=== PATIENT | female | born 1970 | race Caucasian/White ===

== ENCOUNTER → 2017-10-18 10:40 | Outpatient (CLI) | payer OTHER, SELFPAY ==
--- NOTE | 2017-10-18 10:50 | BI_ITS ---
MAMMOGRAPHY - BILATERAL SCREENING 3-D ELISABETH SYNTHESIS REASON FOR EXAM: Female, 47 years old. Bilateral Screening 3-D tomosynthesis PERTINENT HISTORY: Personal history of breast cancer with previous lumpectomy.. TECHNIQUE: 2-D mammograms and 3-D Elisabeth synthesis of the breast (s) were performed. CAD was performed. COMPARISON: 09/28/2016 FINDINGS: The breast composition is heterogeneously dense that can obscure small breast masses. Scattered benign calcifications are seen. No dense spiculated masses or suspicious microcalcifications are identified. Stable architectural distortion in the central right breast from previous surgery. There has been no significant change since the prior study. There has been no significant change since the prior study. BI/SCREENING MAMM (CAD), BILAT IMPRESSION: No mammographic signs of malignancy. Routine yearly mammograms recommended. ASSESSMENT CATEGORY: BIRADS Category 2: Benign. A letter regarding these results will be sent to the patient by the facility within 30 days. FOLLOW UP RECOMMENDATION: Yearly follow up mammogram recommended. (A) Approximately 10% of breast cancers are not detected by mammography. A normal mammogram should not delay biopsy of a clinically suspicious abnormality. Electronically Signed: Norberto Appiah MD at 14:13 EDT , Service support ,
== END ==
PROVIDERS: Family Provider Family Medicine; PCP Family Medicine; Visit Provider Obstetrics & Gynecology
DX: Z12.31 Encounter for screening mammogram for malignant neoplasm of breast (principal)
CPT/HCPCS: 77063; 77067

== ENCOUNTER → 2018-10-24 10:20 | Outpatient (CLI) | payer OTHER, SELFPAY ==
--- NOTE | 2018-10-24 10:23 | BI_ITS ---
MAMMOGRAPHY - BILATERAL SCREENING REASON FOR EXAM: Female, 48 years old. Routine annual screening examination. PERTINENT HISTORY: Personal history of breast cancer. Prior right lumpectomy with radiation and chemotherapy. TECHNIQUE: Digital bilateral breast elisabeth (3D mammographic acquisition) in the CC and MLO projections. 2-D mediolateral oblique (MLO) and craniocaudad (CC) views of both breasts were obtained. CAD: Full Field Digital Mammography with Computer Added Detection was performed. COMPARISON: Comparison is made with prior study dated October 18, 2017 and September 28, 2016. FINDINGS: Breast Composition: The breasts are heterogeneously dense, which may obscure small masses. There are no dominant masses or suspicious calcifications. Stable postoperative appearance in the upper deep slightly medial aspect of the right breast with a resultant postsurgical architectural distortion and focal calcification. Surgical clips are also seen in the right axillary region. No other significant abnormalities are identified. There has been no significant change since the prior study. BI/SCREEN MAMM (CAD) W/ELISABETH BILAT IMPRESSION: Stable bilateral screening mammogram. Yearly follow-up mammogram recommended. (A) ASSESSMENT CATEGORY: BIRADS Category 2: Benign. A letter regarding these results will be sent to the patient by the facility within 30 days. Approximately 10% of breast cancers are not detected by mammography. A normal mammogram should not delay biopsy of a clinically suspicious abnormality. [id number] Electronically Signed: Kenneth Kuo, at 11:28 EDT , Service support ,
== END ==
PROVIDERS: Family Provider Family Medicine; PCP Family Medicine; Referring Provider Obstetrics & Gynecology; Visit Provider Obstetrics & Gynecology
DX: Z12.31 Encounter for screening mammogram for malignant neoplasm of breast (principal)
CPT/HCPCS: 77063; 77067

== ENCOUNTER → 2018-11-06 09:53 | Outpatient (CLI) | payer OTHER, SELFPAY ==
[2018-11-06 10:48] LABS: BUN 23 mg/dL (7-18); Creatinine, Serum 1.03 mg/dL (0.55-1.02); Glucose 117 mg/dL (74-106)
[2018-11-06 10:49] LABS: ALB/GLOB Ratio 1.1 RATIO (0.9-2.4); AST(SGOT) 23 U/L (15-37); Alanine Aminotransfer ALT/SGPT 37 U/L (13-56); Albumin, Serum 3.8 g/dL (3.2-5.0); Alkaline Phosphatase 72 U/L (45-117); Anion Gap 7 (5-15); BUN/Creat Ratio 22.3 RATIO (10-20); Chloride 106 mmol/L (98-107); Cholesterol 206 mg/dL (200); EST Glomerular Filtration Rate 61 mL/min (>60); Est Glom Filt Rate - Afr Amer 74 mL/min (>60); Globulin 3.5 g/dL (2.2-4.2); High Density Lipoprotein 43 mg/dL; Potassium 3.6 mmol/L (3.5-5.1); Protein, Total 7.3 g/dL (6.4-8.2); Sodium Level 141 mmol/L (136-145); Triglycerides 129 mg/dL; Very Low Density Lipoprotein 26 mg/dL (5-40)
== END ==
PROVIDERS: Family Provider Family Medicine; PCP Family Medicine; Referring Provider Family Medicine; Visit Provider Family Medicine
DX: I10 Essential (primary) hypertension (principal)
CPT/HCPCS: 36415; 80053; 80061

== ENCOUNTER 2019-06-14 14:04 | Emergency (ER) | payer OTHER, SELFPAY ==
[2019-06-14 14:05] VITALS: BP 164/112; PULSE 83; RESP 16; TEMP 36.7; O2SAT 98; BMI 40.0
[2019-06-14 14:13] VITALS: BMI 37.5
--- NOTE | 2019-06-14 14:25 | EKG12_ITS ---
Test Reason : NEURO S/SX Blood Pressure : / mmHG Vent. Rate : 080 BPM Atrial Rate : 080 BPM P-R Int : 152 ms QRS Dur : 076 ms QT Int : 388 ms P-R-T Axes : 039 -08 015 degrees QTc Int : 447 ms Normal sinus rhythm Inferior infarct , age undetermined Abnormal ECG Confirmed by DONTRELL IYER, MELE ([id number]), index editor CLAUDIA MOJICA ([id number]) on 06/17/2019 8:35:54 AM Referred By: ANGELITA Confirmed By:MELE JON MD
--- NOTE | 2019-06-14 14:25 | CT_ITS ---
STUDY: CTA HEAD AND NECK WITH CONTRAST REASON FOR EXAM: Female, 48 years old. FACIAL [place], RT SIDE RADIATION DOSAGE (If Supplied By Facility): CTDIvol = ( 25.29 ) mGy, DLP = ( 1358.25 ) mGycm TECHNIQUE: CT angiography was performed with a multi-detector CT scanner. Data acquisition was obtained from the skull base through the vertex following intravenous administration of 100 CC ISOVUE 370. MIP images were reconstructed from the axial data set. Post-processing of the angiographic images was performed, with multiplanar reformation and 3D reconstruction. Individualized dose optimization techniques were used for this CT. COMPARISON: No relevant priors. FINDINGS: Normal bilateral petrous carotid arteries. Normal right cavernous carotid artery with a normal supraclinoid bifurcation. Normal left cavernous carotid artery with a normal supraclinoid bifurcation. Diffusely hypoplastic right A1 segment of the anterior cerebral artery. Normal left A1 segments of the anterior cerebral artery. Normal intact anterior communicating artery (ACOM). Normal bilateral A2 segments of the anterior cerebral arteries. Normal right M1 and M2 segments of the middle cerebral arteries, with a normal M1 bifurcation. Normal left M1 and M2 segments of the middle cerebral arteries, with a normal M1 bifurcation. Hypoplastic bilateral posterior communicating arteries (PCOM). Normal bilateral vertebral arteries. Normal basilar artery with a normal basilar bifurcation. The visualized bilateral superior cerebellar (SCA) arteries are normal. Normal bilateral P1, P2 and visualized P3 segments of the posterior cerebral arteries. There is no demonstrated aneurysm of the lower elwha of [place]. There is no demonstrated abnormality of the visualized brain. AORTIC ARCH: Normal visualized aortic arch. Normal origins of the brachiocephalic, left common carotid, and left subclavian arteries. RIGHT CAROTID ARTERIES: Normal right common carotid artery (CCA). Normal right common carotid bulb. Normal origin of the right internal carotid (ICA) artery without a hemodynamically significant stenosis. Normal visualized cervical portion of the right internal carotid artery. Normal origin of the right external carotid artery (ECA). LEFT CAROTID ARTERIES: Normal left common carotid artery (CCA). Normal left common carotid bulb. Normal origin of the left internal carotid (ICA) artery without a hemodynamically significant stenosis. Normal visualized cervical portion of the left internal carotid artery. Normal origin of the left external carotid artery (ECA). VERTEBRAL ARTERIES: Normal bilateral vertebral arteries. CT/CTA Head AND Neck W/ Contrast IMPRESSION: Hypoplastic right A1 segment and bilateral posterior communicating arteries likely a normal variation. Electronically Signed: Isiah Che DO at 16:06 EDT Tel [phone], Service support ,
--- NOTE | 2019-06-14 14:29 | NURSING ---
NO OLD EKGS
[2019-06-14 14:40] LABS: Absolute Lymphocyte Count 1.36 X10^3/uL (0.83-4.51); Absolute Neutrophil Count 5.2 X10^3/uL (2.0-7.7); Basophil# 0.05 X10^3/uL; Basophil% 0.7 % (0-1); Eosinophil# 0.13 X10^3/uL; Eosinophils% 1.8 % (0-5); Hematocrit 41.3 % (37-47); Hemoglobin 13.7 g/dL (12.0-15.0); Lymphocyte # 1.36 X10^3/ul (4.0); Lymphocyte % 18.4 % (19-41); Mean Corp Hgb Conc 33.2 g/dL (32-36); Mean Corpuscular Hgb 30.6 pg (27.0-32.0); Mean Corpuscular Volume 92.4 fL (81-99); Mean Platelet Vol. 9.4 fl (6.2-12.0); Monocyte# 0.63 X10^3/uL; Monocyte% 8.5 % (0-10); NRBC Flagged by Analyzer 0 % (0-5); Neutrophil # 5.22 X10^3/uL (2.7-7.7); Neutrophil % 70.3 % (47-70); Platelet Count 301 K/mm3 (150-450); RBC Distribution Width CV 13.5 % (11.6-14.6); RBC Distribution Width SD 46.4 fl (35.1-43.9); Red Blood Count 4.47 M/mm3 (4.2-5.4); White Blood Count 7.4 K/mm3 (4.4-11.0)
[2019-06-14 14:53] LABS: Anion Gap 8 (5-15); BUN 16 mg/dL (7-18); BUN/Creat Ratio 16.3 RATIO (10-20); Calcium,Total 8.9 mg/dL (8.5-10.1); Chloride 103 mmol/L (98-107); Creatinine, Serum 0.98 mg/dL (0.55-1.02); EST Glomerular Filtration Rate 64 mL/min (>60); Est Glom Filt Rate - Afr Amer 77 mL/min (>60); Estimated Creatinine Clearance 63.17 ml/min; Glucose 122 mg/dL (74-106); Potassium 3.5 mmol/L (3.5-5.1); Sodium Level 141 mmol/L (136-145)
[2019-06-14 15:08] VITALS: BP 127/92; PULSE 85; RESP 18; O2SAT 96
[2019-06-14 15:18] VITALS: BP 136/96; PULSE 90; RESP 16; O2SAT 98
--- NOTE | 2019-06-14 15:45 | ED.VISSUMM ---
- ER Visit Summary Date of Service: 06/14/19 Chief Complaint: Headache, facial tingling History of Present Illness: The patient is a 48 F presenting with facial tingling. Patient states she started having a gradual onset headache last night. She states at its worst it was 2 out of 10. This was not the worst headache of her life. The headache has currently resolved. She states at the time the headache started she started having tingling on the right side of her face. This started around 1:30 AM. She woke up around 5 AM and noted tingling in her right arm and leg. She was able to ambulate to the bathroom at that time and had no weakness. She denies any vertigo. Denies vision or speech changes. Denies confusion. She states she then went back to sleep. When she woke up at 9 AM the tingling in her right arm and leg had resolved but she continues to have tingling in her right side of her face. The headache is also resolved. She denies other complaints. Physical Examination: Vitals are stable. Patient is afebrile. Alert no acute distress. HEENT exam is unremarkable. Neck is supple. No meningismus Lungs are clear and equal bilaterally. Heart is regular rate and rhythm. Abdomen is soft nontender nondistended. Extremities are unremarkable. Skin is warm and dry. No focal neurologic deficit. NIH is 0 Remainder of exam is unremarkable. Emergency Department Course and Treatment: Initial blood pressure 164/112. Repeat blood pressure 127/92. EKG is sinus rhythm rate of 80 with no acute ischemic changes. CBC, chemistries unremarkable. CTA head and neck show hypoplastic right A1 segment and bilateral posterior communicating arteries likely a normal variation. Discussed with the patient that this may have been an atypical migraine versus TIA. Discussed with the hospitalist for evaluation. Patient was evaluated by the hospitalist in the ED. Patient will be discharged to follow-up with her primary care physician. She is agreeable with this plan. She is advised signs and symptoms for which to return to the ED. Disposition: Discharge home Impression: Headache, facial paresthesia This note was generated with [employer] software. It may contain incorrect words, spelling, and punctuation that were not noted in review of the chart prior to signing ED Disposition - Plan for ED Patient: Instructions: HEADACHE, Unspecified Prescriptions: Ipratropium [place] 0.06% [ATROVENT NASAL SPRAY (g)] 2 spray NASAL TID #1 nasal.sry Prescription Printed Referrals: Omar Muse [Primary Care Provider] -
[2019-06-14 16:08] VITALS: BP 131/94; PULSE 90; RESP 13; O2SAT 96
--- NOTE | 2019-06-14 16:45 | NURSING ---
DR ROSSI IN ER
--- NOTE | 2019-06-14 16:48 | ED.DEP ---
ED Disposition - Plan for ED Patient: Instructions: HEADACHE, Unspecified Referrals: Omar Muse [Primary Care Provider] -
[2019-06-14 16:59] VITALS: BP 141/97; PULSE 79; RESP 16; O2SAT 98
--- NOTE | 2019-06-14 17:12 | PCM.CONS.GEN ---
Problem List (1) Migraine Status: Acute Qualifiers: Migraine type: without aura Status migrainosus presence: without status migrainosus Intractability: not intractable Qualified Code(s): G43.009 - Migraine without aura, not intractable, without status migrainosus (2) HTN (hypertension) Status: Chronic (3) History of breast cancer Status: Chronic Comment: she had a right side lumpectomy in 2007....cancer free now (4) History of endometrial ablation Status: Chronic Comment: for DUB (5) Obesity Status: Chronic (6) Glucose intolerance Status: Chronic (7) Diabetes in Status: Inactive Qualifiers: Diabetes in type: gestational Reason for Consult Date of Consultation: 06/14/19 Reason for Consultation: R side paresthesias of face shoulder and leg History of Present Illness: The patient is a 48 year old F with a past medical history of hypertension, obesity, gestational diabetes, glucose intolerance and breast CA who presented to the ED at [facility] on 06/14/19 c/o numbness and tingling of the R face, R shoulder and the R leg that started the previous night. She also had a right side FULLER. She went to bed and today there is no longer any paresthesias of the RUE of R leg but she still has a funny sensation in the R face. She denied changes in vision, slurred speech, confusion, weakness of the arms or legs, difficulty swallowing and trouble getting her words out. she has had no vertigo and no difficulty ambulating. She also sometimes has this sensation when she has sinus problems. She has never been diagnosed with migraines by a physician however she gets headaches that are often associated with photophobia and sometimes with nausea. She denies any aura. She has never had neurologic complaints with these headaches. She states that Excedrin Migraine works better for these headaches than Motrin. She sometimes has to go to bed and sleep it off when they are severe. She also states that sometimes drinking coffee helps. To her knowledge there is no family history of migraines. The headaches are infrequent and frequently associated with changes in temperature outside. She denies fevers, cough, ear pain. Her only medications are Cozaar and a diuretic for HTN. She tells me that she usually takes over the counter sinus medications with a decongestant when she gets that sensation on the right side of the face. She has a RX for Zyrtec and this helps some. Nasal steroids have not worked for her in the past. Vital signs at presentation to the emergency room were temperature 98.1, pulse rate 83, blood pressure 164/112, respiratory rate 16 and she was 98% saturated on room air. The second blood pressure was 127/92 and she did not receive any medication. CBC showed a normal white blood cell count, normal hemoglobin and normal platelets. The BMP was unremarkable except a mildly increased random glucose at 122. A CTA of the head and neck were done in the emergency room and showed a hypoplastic right A1 segment and hypoplastic bilateral posterior communicating arteries. Past Medical History Past Medical History (Chronic Problems): Chronic Problems HTN (hypertension) (Chronic) History of breast cancer (Chronic) she had a right side lumpectomy in 2007....cancer free now History of endometrial ablation (Chronic) for DUB Obesity (Chronic) Glucose intolerance (Chronic) Allergies Sulfa (Sulfonamide Antibiotics) Allergy (Verified 06/14/19 14:08) Rash Home Medications: Ambulatory Orders Medication Instructions Recorded Hydrochlorothiazide [Hctz] 25 mg PO DAILY 06/14/19 Ipratropium [place] 0.06% 2 spray NASAL TID #1 nasal.sry 06/14/19 [ATROVENT NASAL SPRAY (g)] Surgical History: - - Endometrial ablation for dysfunctional uterine bleeding, right breast lumpectomy Psychiatric History: No pertinent psych hx [employer] History: dysfunctional uterine bld - Status post endometrial ablation Lives: With Family Smoking Status: Never smoker Tobacco Use: Non-smoker Alcohol: Rare Drugs: None - *Family History Maternal History Items: - - Her mother is alive and healthy. Patient denies any family history of breast cancer and she herself is BRCA negative. Paternal History Items: Cancer - Father of throat cancer in his 40s. He was a smoker. Review of Systems Constitutional: Denies: Anorexia, Chills, Fever, Malaise, Weakness, Weight Change Eyes: Denies: Blurred vision, Double vision, Vision Change HEENT: Reports: Head Aches - right side only....most of her FULLER's are on the right side, Nasal Congestion. Denies: Difficulty Swallowing, Dysphasia, Ear Pain, Sinus Congestion, Sinus Drainage, Sore Throat, Visual Changes Cardiovascular: Denies: Chest Pain, Edema, Light Headedness, Palpitations, Syncope Respiratory: Denies: Cough, Shortness of Breath, Shortness of breath at rest, Sputum production Gastrointestinal: Denies: Abdominal Pain, Diarrhea, Nausea, Vomiting Genitourinary: Denies: Dysuria Gynecological: Denies: Breast symptoms, Vaginal discharge Musculoskeletal: Denies: Arm Pain, Joint Pain, Joint Tenderness, Leg Pain, Shoulder Pain Skin: Denies: Jaundice, Rash, Wounds Neurological: Reports: Headaches. Denies: Balance problems, Blurred vision, Double vision, Change in Speech, Slurred speech, Confusion, Difficulty swallowing, Focal weakness, Incoordination, Numbness, Tingling, Tremor, Seizures Psychiatric: Reports: - - she tells me that when she gets anxious her BP increases. Denies: Anxiety, Depression, Homicidal Ideations, Suicidal Ideations Endocrine: Denies: Hx of Thyroiditis Hematologic/ Lymphatic: Denies: Easy Bruising, Easy Bleeding - Physical Exam Vitals/I&O's: Vital Signs Temp Pulse Resp BP Pulse Ox 98.1 F 79 16 141/97 H 98 06/14/19 14:05 06/14/19 16:59 06/14/19 16:59 06/14/19 16:59 06/14/19 16:59 Oxygen Delivery Method Room Air Weight: 225 lb 15.581 oz Body Mass Index (BMI) 37.5 General: Alert, Oriented x3, Cooperative, No apparent distress, Well developed, Well nourished HEENT: Atraumatic, PERRLA, EOMI, Normocephalic, TM's Clear, EAC Clear Oral: Moist Mucosa, No Gingival or Mucosal Lesions/ Ulcerations Neck: Supple, No JVD, Negative Carotid Bruits, No Nodes, No Nuchal Rigidity, Trachea Midline Lungs: Clear to auscultation, Normal air movement Cardiovascular: Regular rate, Regular Rhythm, Normal S1, Normal S2, No murmurs, No Ectopic Activity, No rub noted, No Gallop Abdomen: Bowel Sounds Present, Soft, Non Tender, Non-Distended, Obese Extremities: No clubbing, No cyanosis, No edema, Capillary Refill Less than 3 Seconds, No Calf Tenderness Skin: No rashes, No breakdown Musculoskeletal: No Tenderness to Palpation of Joints or Extremities, No Muscle Wasting Neurological: Cranial nerves II-XII grossly intact, Neuro grossly intact, Motor Exam 5/5 strength throughout, Muscle tone normal, Coordination normal, - - NIH is 0. She has intact sensation to all branches of the facial nerve. There is no facial asymmetry. there is no side neglect and no visual field cuts. Psych/Mental Status: Normal Affect, Appropriate Laboratory Results 06/14/19 14:30: WBC 7.4, RBC 4.47, Hgb 13.7, Hct 41.3, MCV 92.4, MCH 30.6, MCHC 33.2, RDW Std Deviation 46.4 H, RDW Coeff of [place]ath 13.5, Plt Count 301, MPV 9.4, Immature Gran % (Auto) 0.300, Neut % (Auto) 70.3 H, Lymph % (Auto) 18.4 L, [place] % (Auto) 8.5, Eos % (Auto) 1.8, Baso % (Auto) 0.7, Absolute Neuts (auto) 5.2, Absolute Lymphs (auto) 1.36, Nucleated RBC % 0 06/14/19 14:30: Sodium 141, Potassium 3.5, Chloride 103, Carbon Dioxide 30.0, Anion Gap 8, BUN 16, Creatinine 0.98, Estim Creat Clear Calc 63.17, Est GFR (MDRD) Af Amer 77, Est GFR (MDRD) Non-Af 64, BUN/Creatinine Ratio 16.3, Glucose 122 H, Calcium 8.9 Assessment/Plan All Active Problems Migraine (Acute) Impressions 1. Transient dysesthesias of the R face, Arm and leg. The arm and leg have completely resolved but she still has a funny feeling in the R cheek....she has had this in the past when she has sinus congestion and she usually takes a decongestant. the sensation and the FULLER are more often than not associated with sudden changes in the weather/temperature. This is associated with R side cephalgia. If she was having a stroke as the etiology of the right side FULLER and dysesthesias I would expect the numbness and tingling to be on the left side of the body. Her neuro exam is normal and the NIH is 0. I suspect the residual funny sensation in the R cheek is due to sinus/nasal congestion. She was given a RX for Atrovent nasal spray to try for non-allergic rhinitis. I told her she can take Zyrtec but avoid OTC decongestants because they increase BP. She was offered admission for observation but, she decided to go home. I explained if she changes her mind or she develops any additional neurologic sx she can come back to the ED and be admitted. Inpatient E&M: [id number] Subs Hosp L2
== END 2019-06-14 17:00 | disposition home or self-care (01) ==
LOC: ED 14:28
PROVIDERS: Emergency Provider Emergency Medicine; PCP Family Medicine
DX: G43.909 Migraine, unspecified, not intractable, without status migrainosus (principal); R09.81 Nasal congestion; E66.9 Obesity, unspecified; I10 Essential (primary) hypertension; Z85.3 Personal history of malignant neoplasm of breast; Z79.899 Other long term (current) drug therapy
CPT/HCPCS: 70496; 70498; 80048; 85025; 93005; 99284; Q9967; A4216

== ENCOUNTER → 2019-11-12 10:40 | Outpatient (CLI) | payer OTHER, SELFPAY ==
--- NOTE | 2019-11-12 10:43 | BI_ITS ---
MAMMOGRAPHY - BILATERAL SCREENING 3-D TOMOSYNTHESIS REASON FOR EXAM: Female, 49 years old. Annual screening mammogram. PERTINENT HISTORY: Personal history of breast cancer at age 35 status post lumpectomy, chemotherapy and radiation.. TECHNIQUE: 2-D mammograms and 3-D Tomosynthesis of the breast (s) were performed. CAD was performed. COMPARISON: 10/24/2018, 10/18/2017 FINDINGS: The breast composition is heterogeneously dense that can obscure small breast masses. Stable postlumpectomy and radiation therapy changes in the right breast with dystrophic calcification. Stable left breast. There has been no significant change since the prior study. BI/SCREEN MAMM (CAD) W/ELISABETH BILAT IMPRESSION: Stable bilateral screening mammogram. Routine yearly mammograms recommended. ASSESSMENT CATEGORY: BIRADS Category 2: Benign. A letter regarding these results will be sent to the patient by the facility within 30 days. FOLLOW UP RECOMMENDATION: Yearly follow up mammogram recommended. (A) Approximately 10% of breast cancers are not detected by mammography. A normal mammogram should not delay biopsy of a clinically suspicious abnormality. Electronically Signed: Saulo Xie MD at 17:29 EDT , Service support ,
== END ==
PROVIDERS: PCP Family Medicine; Referring Provider Obstetrics & Gynecology; Visit Provider Obstetrics & Gynecology
DX: Z12.31 Encounter for screening mammogram for malignant neoplasm of breast (principal); Z85.3 Personal history of malignant neoplasm of breast
CPT/HCPCS: 77063; 77067

== ENCOUNTER → 2020-11-19 10:37 | Outpatient (CLI) | payer OTHER, SELFPAY ==
--- NOTE | 2020-11-19 10:41 | BI_ITS ---
MAMMOGRAPHY - BILATERAL SCREENING REASON FOR EXAM: Female, 50 years old. Routine annual screening examination. PERTINENT HISTORY: Personal history of breast cancer. Prior right lumpectomy with radiation and chemotherapy. TECHNIQUE: Digital bilateral breast elisabeth (3D mammographic acquisition) in the CC and MLO projections. 2-D mediolateral oblique (MLO) and craniocaudad (CC) views of both breasts were obtained. CAD: Full Field Digital Mammography with Computer Added Detection was performed. COMPARISON: Comparison is made with prior examination dated 11/12/2019 and 10/24/2018. FINDINGS: Breast Composition: The breasts are heterogeneously dense, which may obscure small masses. There are no dominant masses or suspicious calcifications. The patient is status post lumpectomy in the deep upper medial portion of the right breast with resultant postoperative scarring and dystrophic calcification. This is unchanged. The left breast is unremarkable. No other significant abnormalities are identified. There has been no significant change since the prior study. BI/SCRN MAMM (CAD)W/ELISABETH BILAT IMPRESSION: Stable bilateral screening mammogram. Yearly follow-up mammogram recommended. (A) ASSESSMENT CATEGORY: BIRADS Category 2: Benign. A letter regarding these results will be sent to the patient by the facility within 30 days. Approximately 10% of breast cancers are not detected by mammography. A normal mammogram should not delay biopsy of a clinically suspicious abnormality. [id number] Electronically Signed: Kenneth Kuo MD at 12:57 EDT , Service support ,
== END ==
PROVIDERS: PCP Family Medicine; Referring Provider Obstetrics & Gynecology; Visit Provider Obstetrics & Gynecology
DX: Z12.31 Encounter for screening mammogram for malignant neoplasm of breast (principal); Z85.3 Personal history of malignant neoplasm of breast
CPT/HCPCS: 77063; 77067

== ENCOUNTER → 2021-11-25 | Outpatient (CLI) | payer OTHER, SELFPAY ==
--- NOTE | 2021-11-25 10:17 | BI_ITS ---
MAMMOGRAPHY - BILATERAL SCREENING REASON FOR EXAM: Female, 51 years old. Routine annual screening examination. PERTINENT HISTORY: Personal history of breast cancer. Prior right lumpectomy with chemotherapy and radiation treatment. TECHNIQUE: Digital bilateral breast elisabeth (3D mammographic acquisition) in the CC and MLO projections. 2-D mediolateral oblique (MLO) and craniocaudad (CC) views of both breasts were obtained. CAD: Full Field Digital Mammography with Computer Added Detection was performed. COMPARISON: Comparison is made with prior examination dated 11/12/2019 and 10/24/2018. FINDINGS: Breast Composition: The breasts are heterogeneously dense, which may obscure small masses. There are no dominant masses or suspicious calcifications. The patient is status post lumpectomy in the upper medial aspect of the right breast with resultant postoperative scarring and dystrophic calcification. There has been no change. Surgical clips are also seen in the right axillary region. No other significant abnormalities are identified. There has been no significant change since the prior study. BI/SCRN MAMM (CAD)W/ELISABETH BILAT IMPRESSION: Stable bilateral screening mammogram. Yearly follow-up mammogram recommended. (A) ASSESSMENT CATEGORY: BIRADS Category 2: Benign. A letter regarding these results will be sent to the patient by the facility within 30 days. Approximately 10% of breast cancers are not detected by mammography. A normal mammogram should not delay biopsy of a clinically suspicious abnormality. [id number] Electronically Signed: Kenneth Kuo MD at 12:12 EDT ,
== END | disposition home or self-care (01) ==
LOC: OPBI 10:16
PROVIDERS: PCP Family Medicine; Visit Provider Obstetrics & Gynecology
DX: Z12.31 Encounter for screening mammogram for malignant neoplasm of breast (principal); Z92.21 Personal history of antineoplastic chemotherapy; Z85.3 Personal history of malignant neoplasm of breast
CPT/HCPCS: 77063; 77067

== ENCOUNTER → 2022-12-13 | Outpatient (CLI) | payer BC, SELFPAY ==
--- NOTE | 2022-12-13 10:30 | BI_ITS ---
MAMMOGRAPHY - BILATERAL SCREENING REASON FOR EXAM: Female, 52 years old. Routine annual screening examination. PERTINENT HISTORY: Personal history of breast cancer. Prior right lumpectomy and chemotherapy. TECHNIQUE: Digital bilateral breast elisabeth (3D mammographic acquisition) in the CC and MLO projections. 2-D mediolateral oblique (MLO) and craniocaudad (CC) views of both breasts were obtained. CAD: Full Field Digital Mammography with Computer Added Detection was performed. COMPARISON: Comparison is made with prior study November 25, 2021 and November 19, 2020. FINDINGS: Breast Composition: The breasts are heterogeneously dense, which may obscure small masses. There are no dominant masses or suspicious calcifications. The patient is status post lumpectomy in the upper medial aspect of the right breast with resultant postoperative scarring and dystrophic calcification. Stable small benign-appearing bilateral axillary lymph nodes. No other significant abnormalities are identified. There has been no significant change since the prior study. BI/SCRN MAMM (CAD)W/ELISABETH BILAT IMPRESSION: Stable bilateral screening mammogram. Yearly follow-up mammogram recommended. (A) ASSESSMENT CATEGORY: BIRADS Category 2: Benign. A letter regarding these results will be sent to the patient by the facility within 30 days. Approximately 10% of breast cancers are not detected by mammography. A normal mammogram should not delay biopsy of a clinically suspicious abnormality. [id number] Electronically Signed: Kenneth Kuo MD at 12:28 EDT ,
== END | disposition home or self-care (01) ==
PROVIDERS: PCP Family Medicine; Referring Provider Obstetrics & Gynecology; Visit Provider Obstetrics & Gynecology
DX: Z12.31 Encounter for screening mammogram for malignant neoplasm of breast (principal); Z85.3 Personal history of malignant neoplasm of breast
CPT/HCPCS: 77063; 77067

== ENCOUNTER → 2023-02-22 | Outpatient (CLI) | payer BC, SELFPAY ==
[2023-02-22 12:35] LABS: ALB/GLOB Ratio 1.1 RATIO (0.9-2.4); AST(SGOT) 29 U/L (15-37); Alanine Aminotransfer ALT/SGPT 45 U/L (13-56); Albumin, Serum 3.9 g/dL (3.2-5.0); Alkaline Phosphatase 74 U/L (45-117); Anion Gap 7 (5-15); BUN 17 mg/dL (7-18); BUN/Creat Ratio 21.7 RATIO (10-20); Calcium,Total 8.5 mg/dL (8.5-10.1); Chloride 103 mmol/L (98-107); Cholesterol 232 mg/dL (200); Creatinine, Serum 0.78 mg/dL (0.55-1.02); EST Glomerular Filtration Rate 82 mL/min (>60); Est Glom Filt Rate - Afr Amer 99 mL/min (>60); Globulin 3.7 g/dL (2.2-4.2); Glucose 150 mg/dL (74-106); High Density Lipoprotein 43 mg/dL; Potassium 3.7 mmol/L (3.5-5.1); Protein, Total 7.6 g/dL (6.4-8.2); Sodium Level 140 mmol/L (136-145); Triglycerides 161 mg/dL; Very Low Density Lipoprotein 32 mg/dL (5-40)
[2023-02-22 12:53] LABS: Hemoglobin A1c 6.7 % (3.8-5.6)
== END | disposition home or self-care (01) ==
LOC: LAB 11:07
PROVIDERS: PCP Family Medicine; Visit Provider Family Medicine
DX: I10 Essential (primary) hypertension (principal); R73.9 Hyperglycemia, unspecified
CPT/HCPCS: 36415; 80053; 80061; 83036

== ENCOUNTER → 2023-10-05 | Outpatient (CLI) | payer OTHER, SELFPAY ==
--- NOTE | 2023-10-05 09:05 | US_ITS ---
PROCEDURES: ULTRASOUND AORTA REASON FOR EXAM: Female, 53 years old. HX OF AAA TECHNIQUE: Ultrasound evaluation of the aorta was performed with real-time and static sarmiento-scale imaging. COMPARISON: None. FINDINGS: There is no elongation or tortuosity of the abdominal aorta. Aorta measures: Proximal 2.2 cm. Middle 1.7 cm. Distal 1.6 cm. Aorta measure transversely: Proximal 2.2 cm. Middle 1.7 cm. Distal 1.6 cm. Right iliac artery measures: 1 cm. Right iliac artery measure transversely: 1 cm. Left iliac artery measures: 1 cm. Left iliac artery measure transversely: 1 cm. There is no demonstrated aneurysm.. US/Aorta IMPRESSION: Normal abdominal aorta. Electronically Signed: Kenneth Kuo MD at 10:15 EDT ,
== END | disposition home or self-care (01) ==
LOC: US 08:59
PROVIDERS: PCP Family Medicine; Referring Provider Family Medicine; Visit Provider Family Medicine
DX: Z13.6 Encounter for screening for cardiovascular disorders (principal); Z82.49 Family history of ischemic heart disease and other diseases of the circulatory system
CPT/HCPCS: 76775

== ENCOUNTER 2023-10-26 11:30 | Outpatient (RCR) | payer OTHER, SELFPAY ==
--- NOTE | 2023-08-30 11:47 | HP.PTEVAL_ITS ---
Patient's Visit Information Visit Information Visit Information: LYNN PAK is a 53 year old F referred to Physical Therapy by Dr. Bryn Pittman DPM with a diagnosis of Anterior Tib Tendonitis. Date of Evaluation: 08/30/23 Physical Therapist: Mallika Campbell DPT Visit Plan Frequency: 2x /Week Duration: 4 Weeks Plan: Ultrasound, Gastroc Stretching, Proprioception, LE and core strength/s tabilization HEP Given IE: inversion/eversion, gastroc stretch with towel Subjective Subjective: She tripped over the cat July 07-fell down the steps and heard something in her right foot and its been super painful since then. The pain is from the big toe straight back up through the middle out the lateral side and a little bit on the medial side when you press on it. She has had x-rays which were negative. No MRI at this time. Agg: bumping, turning it the wrong way, stepping on it wrong. Worst: 5-6/10. Best: 2/10 always a constant ache Eases: elevation, Aleve, Adama. Describes the pain as dull and achy when sitting but its more of a sharp and shooting pain with the bumping or moving it the wrong way. The wrong way is without a shoe and getting out of the shower or slipping the sock off. Work: from home- sitting at a desk. She feels that its staying the same. [employer]- newer tennis shoes- they seem to help a little bit- she has inserts in them as well. No N/T in the toes. She is not very active. She walks on the [employer] 3-4x a week- walks 30 min- no incline. Sleep: not disturbed- in the AM its stiff. PMHx/Meds: no changes since paper work was sent/scanned by Objective Objective: Posture: forward head, rounded shoulders- can correct with verbal cues Gait: slightly turned out toes- decreased stance on the right lower extremity HR/TR: able without pain SLS: 10 seconds with mild increase in sway- reports more imbalance in right vs left Palpation tender along lateral aspect of the malleolus, in between great toe and 2nd toe ROM: DF: neutral, PF: 30 degrees, Inver: 30 degrees, Ever: 10 degrees with pain Strength: Hip: 4/5, Knee: 4+/5, Ankle: 4/5- pain with resisted eversion Flex: Gastroc: severe, Soleus: severe 51 50 27/25 Balance/Special Test Scores Lower Extremity Functional Score: 58 Goals Goal 1:: Patient will be I with HEP and progression Goal Time Frame: 4-6 Weeks Goal 2:: Patient will demo full strength of the ankle without pain Goal Time Frame: 4-6 Weeks Goal 3:: Patient will demo full flexibility of the ankle Goal Time Frame: 4-6 Weeks Goal 4:: Patient will report no pain for 1 week Goal Time Frame: 4-6 Weeks Rehabilitation Potential Physical Therapy Diagnosis: Patient presents with hypomobility- she has decreased LE strength, pain free ROM, proprioception, muscular endurance leading to increased pain with ADL's. Rehabilitation Potential: Fair Anticipated Interventions Patient/Client Instruction: Educate patient on: Benefits of Fitness Program Therapeutic Exercise to Include: Strength training, Endurance training, Balance training, Coordination, Agility training, Body mechanics, Postural training, Flexibilty training, Gait and locomotor training, Neuromotor development, Passive ROM, Active ROM, Dynamic Lumbar Stabilization and Scapular Strength/Stabilization For the Purpose of:: To improve muscle performance and motor function TENS: Yes Cryotherapy (ice pack, ice massage): Yes Thermo therapy (hot pack): Yes Ultrasound (thermal/non thermal): Yes Text: Thank you for the opportunity to evaluate your patient. For Medicare and Medicare HMO plans, please review the plan of care and approve it. It will need to be FAXED BACK to us at [phone] for Medicare purposes. For Medicare only, by signing this I certify the plan of care. Please let me know if there are questions or concerns regarding this plan of care. Physician Signature: Date:
--- NOTE | 2023-09-26 11:00 | HP.PTREVAL_ITS ---
Re-Evaluation Intro: Dr. Bryn Pittman, DPM, It has been my pleasure to treat LYNN PAK over the last 7 visits for Anterior Tib Tendonitis. Please see the progress note below for an update on the physical therapy plan of care! Subjective Subjective: Pt is still sore certain ways that she turns it INV/EV and feels it around her ankle area. Depending on how she moves it might be a sharp zing of pain. She just saw the Dr this week or last week and she goes back to him again October 16. said to continue with PT and she said that insurance is limited. She feels that the is helping as well and wants more visits. Objective Objective/Function: R ankle AROM -5 DF, 55 PF, 11 IV, 9 EV Pain with resisted INV on the R R ankle MMT R ankle DF/PF/INV 4/5 and INV 4-/5 Pt points to her pain at the base of the first and second met and along the peronal tendon on the R foot SLB X 10 seconds on the R Gait: toe out more on the R and decreased stance time on the R LE Plan Plan Plan: Requested additional visits. Instructed pt do do towel stretch and green t-band exercises. Would like to continue the Ultrasound, Gastroc Stretching, ankle strength, balance and Proprioception, LE and core strength/stabilization HEP Given IE: inversion/eversion, gastroc stretch with towel Balance/Gait/Functional tests Balance/Special Test Scores Lower Extremity Functional Score: 64 Goals Goals Goal 1:: Patient will be I with HEP and progression Goal Time Frame: 4-6 Weeks Goal Progress: Goal Met Goal 2:: Patient will demo full strength of the ankle without pain Goal Time Frame: 4-6 Weeks Goal Progress: Progressing Goal 3:: Patient will demo full flexibility of the ankle Goal Time Frame: 4-6 Weeks Goal 4:: Patient will report no pain for 1 week Goal Time Frame: 4-6 Weeks Anticipated Interventions Anticipated Interventions Patient/Client Instruction: Educate patient on: Benefits of Fitness Program Therapeutic Exercise to Include: Strength training, Endurance training, Balance training, Coordination, Agility training, Body mechanics, Postural training, Fl exibilty training, Gait and locomotor training, Neuromotor development, Passive ROM, Active ROM, Dynamic Lumbar Stabilization and Scapular Strength/Stabilization For the Purpose of:: To improve muscle performance and motor function TENS: Yes Cryotherapy (ice pack, ice massage): Yes Thermo therapy (hot pack): Yes Ultrasound (thermal/non thermal): Yes Re-Evaluation Ending Re-evaluation ending: Please do not hesitate to contact me at [phone] by phone or if you have questions or concerns regarding this new plan of care! Sincerely, Domi Ghotra, MPT
--- NOTE | 2023-10-26 12:15 | HP.PTREVAL ---
Re-Evaluation Intro: Dr. Bryn Pittman, DPM, It has been my pleasure to treat LYNN PAK over the last 13 visits for Anterior Tib Tendonitis. Please see the progress note below for an update on the physical therapy plan of care! Subjective Subjective: Hurt right foot going to basement again, trying to carry laundry basket. She still has pain with inversion/eversion. She goes back to the Dr on 11-14-23 and will possibly do an MRI Objective Objective/Function: R DF neutral and PF 66, INV 19 and EV 14 Gait: walks with decrease stance time on the R LE. SLB 17 seconds on the R Pt has increase pain walking BW Plan Plan Plan: Requested additional 8 visits. Instructed pt to do towel stretch and green t-band exercises. Would like to continue the Ultrasound, Gastroc Stretching, ankle strength, balance and Proprioception, LE and core strength/stabilization, SLB Balance/Gait/Functional tests Balance/Special Test Scores Lower Extremity Functional Score: 65 Goals Goals Goal 1:: Patient will be I with HEP and progression Goal Time Frame: 4-6 Weeks Goal Progress: Goal Met Goal 2:: Patient will demo full strength of the ankle without pain Goal Time Frame: 4-6 Weeks Goal Progress: Progressing Goal 3:: Patient will demo full flexibility of the ankle Goal Time Frame: 4-6 Weeks Goal 4:: Patient will report no pain for 1 week Goal Time Frame: 4-6 Weeks Anticipated Interventions Anticipated Interventions Patient/Client Instruction: Educate patient on: Benefits of Fitness Program Therapeutic Exercise to Include: Strength training, Endurance training, Balance training, Coordination, Agility training, Body mechanics, Postural training, Flexibilty training, Gait and locomotor training, Neuromotor development, Passive ROM, Active ROM, Dynamic Lumbar Stabilization and Scapular Strength/Stabilization For the Purpose of:: To improve muscle performance and motor function TENS: Yes Cryotherapy (ice pack, ice massage): Yes Thermo therapy (hot pack): Yes Ultrasound (thermal/non thermal): Yes Re-Evaluation Ending Re-evaluation ending: Please do not hesitate to contact me at [phone] by phone or if you have questions or concerns regarding this new plan of care! Sincerely, Domi Ghotra, MPT
--- NOTE | 2024-01-23 11:18 | HP.PT.NRP ---
Patient Information Patient Information: LYNN PAK was seen in my office for initial evaluation on 08/30/23. The following Plan of Care was established for this patient: POC Established Initial Frequency: 2x /Week Initial Duration: 4 Weeks Anticipated Interventions Patient/Client Instruction: Educate patient on: Benefits of Fitness Program Therapeutic Exercise to Include: Strength training, Endurance training, Balance training, Coordination, Agility training, Body mechanics, Postural training, Flexibilty training, Gait and locomotor training, Neuromotor development, Passive ROM, Active ROM, Dynamic Lumbar Stabilization and Scapular Strength/Stabilization For the Purpose of:: To improve muscle performance and motor function TENS: Yes Cryotherapy (ice pack, ice massage): Yes Thermo therapy (hot pack): Yes Ultrasound (thermal/non thermal): Yes Last Seen Last Seen: This patient was last seen in our office 10/26/23. Pertinent comments regarding their Physical therapy will appear below: NEDA PT At this point I will be discontinuing this patient from physical therapy. I would be happy to see this patient again in the future if found appropriate by the physician. Thank you! Domi Ghotra, AMBIKA Balance/Gait/Functional tests Balance/Special Test Scores Lower Extremity Functional Score: 65
== END 2023-10-26 19:00 | disposition home or self-care (01) ==
LOC: PT 11:30
PROVIDERS: PCP Family Medicine; Referring Provider Student in an Organized Health Care Education/Training Program; Visit Provider Student in an Organized Health Care Education/Training Program
DX: M76.821 Posterior tibial tendinitis, right leg (principal); S90.31XD Contusion of right foot, subsequent encounter
CPT/HCPCS: 97035; 97110; 97162; 97530

== ENCOUNTER → 2023-12-05 | Outpatient (CLI) | payer OTHER, SELFPAY ==
--- NOTE | 2023-12-05 13:30 | MRI_ITS ---
STUDY: MRI RIGHT FOOT REASON FOR EXAM: Female, 53 years old. RIGHT FOOT PAIN, STRESS FRACTURE -- EVAL FOR FOREFOOT INJURY, S/P RECENT FALL DOWN STEPS X 2 TECHNIQUE: Standardized fat and water weighted pulse sequences were obtained in all 3 orthogonal planes. COMPARISON: None. FINDINGS: Normal bone marrow of the metatarsals, phalanges and visualized distal tarsal row, without fracture, periostitis, erosions or reactive bone edema. Normal sesamoids without sesamoiditis, fracture or avascular necrosis. Normal joint spaces, without effusions. Normal capsular structures and plantar plates. There are no extraarticular fluid collections. Normal visualized Chopart and Lisfranc joints and normal Lisfranc ligament. Normal intermetatarsal spaces without intermetatarsal (Bernardo) neuroma or bursitis. Normal visualized distal peroneus longus and brevis tendons. Normal visualized extensor digitorum longus, extensor hallucis longus, flexor digitorum brevis and flexor hallucis longus tendons. Normal visualized plantar fascia without fasciitis, fibromatosis or tear. Normal intrinsic muscles of the foot, without soft tissue masses or evidence of denervation atrophy. There is mild subcutaneous soft tissue edema along the dorsum of the forefoot. MRI/Lower Ext/No Jt/w/o IMPRESSION: Mild subcutaneous soft tissue edema along the dorsum of the forefoot. No demonstrated stress fracture. Electronically Signed: Angel Meyer MD at 14:51 EDT ,
== END | disposition home or self-care (01) ==
LOC: MRI 13:25
PROVIDERS: PCP Family Medicine; Referring Provider Student in an Organized Health Care Education/Training Program; Visit Provider Student in an Organized Health Care Education/Training Program
DX: M79.671 Pain in right foot (principal); M84.374A Stress fracture, right foot, initial encounter for fracture; S90.31XA Contusion of right foot, initial encounter
CPT/HCPCS: 73718

== ENCOUNTER → 2023-12-19 | Outpatient (CLI) | payer OTHER, SELFPAY ==
--- NOTE | 2023-12-19 10:16 | BI_ITS ---
MAMMOGRAPHY - BILATERAL SCREENING REASON FOR EXAM: Female, 53 years old. Routine annual screening examination. PERTINENT HISTORY: Personal history of breast cancer. Prior right lumpectomy. Prior chemotherapy and radiation therapy. TECHNIQUE: Digital bilateral breast elisabeth (3D mammographic acquisition) in the CC and MLO projections. 2-D mediolateral oblique (MLO) and craniocaudad (CC) views of both breasts were obtained. CAD: Full Field Digital Mammography with Computer Added Detection was performed. COMPARISON: Comparison is made with prior study dated December 13, 2022 and November 25, 2021. FINDINGS: Breast Composition: The breasts are heterogeneously dense, which may obscure small masses. There are no dominant masses or suspicious calcifications. Once again, the patient is status post lumpectomy in the upper medial aspect of the right breast with resultant postoperative scarring and dystrophic calcification. Surgical clips are seen in the left axilla. Stable small benign-appearing bilateral axillary lymph nodes. No other significant abnormalities are identified. There has been no significant change since the prior study. BI/SCRN MAMM (CAD)W/ELISABETH BILAT IMPRESSION: Stable bilateral screening mammogram. Yearly follow-up mammogram recommended. (A) ASSESSMENT CATEGORY: BIRADS Category 2: Benign. A letter regarding these results will be sent to the patient by the facility within 30 days. Approximately 10% of breast cancers are not detected by mammography. A normal mammogram should not delay biopsy of a clinically suspicious abnormality. [id number] Electronically Signed: Kenneth Kuo MD at 13:59 EDT ,
== END | disposition home or self-care (01) ==
LOC: OPBI 10:15
PROVIDERS: PCP Family Medicine; Referring Provider Obstetrics & Gynecology; Visit Provider Obstetrics & Gynecology
DX: Z51.0 Encounter for antineoplastic radiation therapy (principal); Z12.31 Encounter for screening mammogram for malignant neoplasm of breast; Z85.3 Personal history of malignant neoplasm of breast; Z92.21 Personal history of antineoplastic chemotherapy
CPT/HCPCS: 77063; 77067

== ENCOUNTER → 2024-10-01 | Outpatient (CLI) | payer BC, SELFPAY ==
[2024-10-01 16:36] LABS: AST(SGOT) 32 U/L (<=31); Alanine Aminotransfer ALT/SGPT 43 U/L (<=34); Albumin, Serum 4.2 g/dL (3.5-5.0); Alkaline Phosphatase 97 U/L (35-104); Anion Gap 13 (5-15); BUN 16 mg/dL (4-19); BUN/Creat Ratio 18.4 RATIO (10-20); Calcium,Total 9.1 mg/dL (7.6-11.0); Carbon Dioxide 27.2 mmol/L (21.0-32.0); Chloride 100 mmol/L (98-108); Cholesterol 155 mg/dL (<=200); Globulin 2.7 g/dL (2.2-4.2); Glucose 236 mg/dL (70-99); Low Density Lipoprotein Calc. 91 mg/dL; Potassium 3.5 mmol/L (3.3-5.1); Triglycerides 134 mg/dL; Very Low Density Lipoprotein 27 mg/dL (5-40); cholesterol:hdl ratio screen 4.14
== END | disposition home or self-care (01) ==
LOC: LAB 13:26
PROVIDERS: PCP Family Medicine; Referring Provider Family Medicine; Visit Provider Family Medicine
DX: E11.69 Type 2 diabetes mellitus with other specified complication (principal); Z13.220 Encounter for screening for lipoid disorders
CPT/HCPCS: 36415; 80053; 80061; 83036

== ENCOUNTER → 2024-12-19 | Outpatient (CLI) | payer BC, SELFPAY ==
--- NOTE | 2024-12-19 11:05 | BI_ITS ---
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 Bilateral Breast Mammographic Findings: Right breast: There is enlarged lymph node in the low right axilla seen on the right MLO view. Recommend additional imaging with targeted ultrasound. No other suspicious findings are identified within the right breast. Left breast: No suspicious findings. BI/SCRN MAMM (CAD)W/ELISABETH BILAT IMPRESSION: Additional diagnostic imaging is recommended with right axillary ultrasound as described above. OVERALL FINAL ASSESSMENT BI-RADS 0: INCOMPLETE - NEED ADDITIONAL IMAGING EVALUATION. RECOMMENDATION: Ultrasound Recommended Additional Recommendation none A letter with findings and recommendations will be mailed to the patient. Reading Location: [id number]
== END | disposition home or self-care (01) ==
LOC: OPBI 11:04
PROVIDERS: PCP Family Medicine; Referring Provider Obstetrics & Gynecology; Visit Provider Obstetrics & Gynecology
DX: Z12.31 Encounter for screening mammogram for malignant neoplasm of breast (principal)
CPT/HCPCS: 77063; 77067

== ENCOUNTER → 2024-12-23 | Outpatient (CLI) | payer BC, SELFPAY ==
--- NOTE | 2024-12-23 09:30 | US_ITS ---
PROCEDURE: BREAST LIMITED UNILATERAL 12/23/2024 REASON FOR EXAM: F, Age 54 y/o , ABN MAMM Previous right lumpectomy COMPARISON: Previous mammograms. TECHNIQUE: Procedure Code: USBRSTLIMIT Modality: US Procedure: BREAST LIMITED UNILATERAL FINDINGS: There is a lymph node lateral to the right breast measuring 1.2 x 0.8 x 0.8 cm at 9 o'clock, this is consistent with a physiologic lymph node. There is posterior enhancement but no shadowing margins are sharp and smooth. In the right axilla there is a hypoechoic area with peripheral hyperemia, but no posterior shadowing or architectural distortion. If this is a lymph node there is no fatty hilum. This may represent a reactive lymph node. Its borders are indistinct. US/Breast Limited Unilateral IMPRESSION: Hypoechoic 1.7 x 1.7 x 1.5 cm nodule in the right axilla with peripheral hypere cristopher but no posterior shadowing. However, the borders are not clearly defined. I suspect this may represent a reactive lymph node and a short-term follow-up ultrasound is recommended to assess stability. There is also a physiologic lymph node in the right breast at 9 o'clock measuri ng 1.2 x 0.8 x 0.8 cm, no specific follow-up for this is needed. There is no suspicious posterior shadowing nodule no architectural distortion o r shadowing calcifications BI-RADS 3: PROBABLY BENIGN. RECOMMENDATION: 3 Month Follow-up Reading Location: [id number]
== END | disposition home or self-care (01) ==
PROVIDERS: PCP Family Medicine; Referring Provider Obstetrics & Gynecology; Visit Provider Obstetrics & Gynecology
DX: R92.8 Other abnormal and inconclusive findings on diagnostic imaging of breast (principal)
CPT/HCPCS: 76642

== ENCOUNTER → 2025-03-25 | Outpatient (CLI) | payer BC, SELFPAY ==
--- NOTE | 2025-03-25 13:05 | US_ITS ---
PROCEDURE: BREAST LIMITED UNILATERAL 03/25/2025 REASON FOR EXAM: F, Age 54 y/o , 3 MO FLOOW UP COMPARISON: 12/23/2024. TECHNIQUE: Procedure Code: USBRSTLIMIT Modality: US Procedure: BREAST LIMITED UNILATERAL FINDINGS: There is a stable physiologic lymph node at 9 o'clock of the right breast measuring 0.9 x 0.7 x 0.5 cm. At 10 o'clock, lateral to the right breast and inferior to the right axilla is another lymph node measuring 1.6 x 1.3 x 1.1 cm. Since this measures slightly greater than 1 cm on short axis dimension, another three-month follow-up ultrasound is recommended to assess stability. There is also a 2nd lymph node at this location which is physiologic measuring 1.4 x 0.9 x 0.8 cm. No suspicious shadowing solid lesion, no hyperemia or architectural distortion US/Breast Limited Unilateral IMPRESSION: Slightly greater than 1 cm in short axis dimension lymph node at 10 o'clock, la teral to the right breast and inferior to the right axilla lymph node, three-month follow-up recommended to assess stability Physiologic lymph nodes noted at 9 and 10 o'clock, no specific follow-up needed BI-RADS 3: PROBABLY BENIGN. RECOMMENDATION: 3 Month Follow-up Reading Location: [id number]
== END | disposition home or self-care (01) ==
PROVIDERS: PCP Family Medicine; Referring Provider Obstetrics & Gynecology; Visit Provider Obstetrics & Gynecology
DX: Z98.890 Other specified postprocedural states (principal)
CPT/HCPCS: 76642